=== PATIENT | male | born 1980 | race African-American/Black ===

== ENCOUNTER 2017-01-07 17:45 | Emergency (ER) | payer OTHER ==
[2017-01-07 17:51] VITALS: BP 140/71; PULSE 67; TEMP 97.9; BMI 25.7
[2017-01-07] MEDS ORDERED: IBUPROFEN 600 MG TABLET (FP) PO ONE ×2 (18:16→18:43)
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
== END 2017-01-07 19:23 | disposition home or self-care (01) ==
LOC: FER 17:45
DX: M79.1 Myalgia (principal); V43.52XA Car driver injured in collision with other type car in traffic accident, initial encounter; Y93.89 Activity, other specified; Y92.410 Unspecified street and highway as the place of occurrence of the external cause; F17.210 Nicotine dependence, cigarettes, uncomplicated
CPT/HCPCS: 72070-TC; 72100-TC; 99282-25